=== PATIENT | male | born 1985 | race Caucasian/White ===

== ENCOUNTER 2016-10-07 17:25 | Emergency (ER) | payer MEDICAID ==
[~2016-10-07] VITALS: Ht 170.2 cm; Wt 65.8 kg
[2016-10-07 17:25] VITALS: BP_SYST 124
[2016-10-07 17:54] VITALS: BP_SYST 124
== END 2016-10-07 17:54 ==
LOC: SED 17:25
DX: Z02.89 Encounter for other administrative examinations (principal); M25.531 Pain in right wrist
CPT/HCPCS: 99283

== ENCOUNTER 2018-01-24 19:46 | Emergency (ER) | payer MEDICAID ==
[~2018-01-24] VITALS: Ht 170.2 cm; Wt 65.8 kg
[2018-01-24 19:51] VITALS: BP_SYST 157
[2018-01-24 20:40] VITALS: BP_SYST 146
== END 2018-01-24 20:40 ==
LOC: SED 19:46
DX: Z02.89 Encounter for other administrative examinations (principal); F17.210 Nicotine dependence, cigarettes, uncomplicated
CPT/HCPCS: 99283

== ENCOUNTER 2018-09-11 09:04 | Emergency (ER) | payer SELFPAY ==
[~2018-09-11] VITALS: Ht 170.2 cm; Wt 68.9 kg
--- NOTE | 2018-09-11 09:04 | NUR ---
SAAD Hart at bedside examining patient.
--- NOTE | 2018-09-11 09:04 | NUR ---
BROUGHT IN BY [employer]ARD BLUNT, PLACED IN HALLWAY, TRIAGED. REPORT GIVEN TO HARRY
[2018-09-11 09:05] VITALS: BP_SYST 145
--- NOTE | 2018-09-11 09:05 | NUR ---
Pt brought in by law enforcement for medical clearance to book. Pt stated he is not in pain but right face abrassion distal to eye with dried blood observed. Pt denies any other symtoms. Cleaned abrassion with NS, applied bactrcin ointment and covered with foam bandage.
[2018-09-11 09:20] VITALS: BP_SYST 145
--- NOTE | 2018-09-11 09:20 | NUR ---
Law enforcement officers provided written discharge instructions, verbal instructions provided to pt as well. ER MD discussed with patient the results and treatment provided. Patient in stable condition. No Rx given. Patient educated on pain management. Pain Scale 0/10. Opportunity for questions provided and answered.
[2018-09-11] MEDS ORDERED: BACITRACIN 1 GM OINT TP ONE (09:28)
== END 2018-09-11 09:20 ==
LOC: SED 09:04
DX: S00.81XA Abrasion of other part of head, initial encounter (principal); Y04.0XXA Assault by unarmed brawl or fight, initial encounter; Y93.89 Activity, other specified; Y92.89 Other specified places as the place of occurrence of the external cause; Y99.8 Other external cause status
CPT/HCPCS: 99283